=== PATIENT | male | born 1990 | race Caucasian/White ===

== ENCOUNTER 2016-10-20 19:15 | Emergency (ER) | payer MEDICAID, OTHER ==
[~2016-10-20] VITALS: Ht 167.6 cm; Wt 58.0 kg
[2016-10-20 19:18] VITALS: Ht 167.6 cm; Wt 58.0 kg
[2016-10-20] MEDS ORDERED: IBUPROFEN 600 MG TAB PO ONE (20:30)
[2016-10-20] MEDS ORDERED: ACETAMINOPHEN 325 MG TAB PO ONE (20:30)
--- NOTE | 2016-10-20 20:41 | ERD ---
ER Documentation Chief Complaint Date/Time DATE: 10/20/16 TIME: 20:36 Chief Complaint body aches, nasal congestion, fever, headache, vomiting one week HPI 26-year-old male presents here in emergency department for complaints of body aches nasal congestion, fever on-and-off wheezing headache vomiting for 1 week. Patient has been having dry cough, does not cough up any phlegm or blood. Patient has episodes of wheezing at times. Patient complaining of bodyaches, throbbing pain, 6/10 scale, is accompanied with the headache. Patient also has vomiting. Patient denies any diarrhea. Patient is also complaining of dysuria. Patient has dark-colored urine. Patient did not take any medications up with symptoms. ROS All systems reviewed and are negative except as per history of present illness. Medications Home Meds Active Scripts Albuterol Sulfate* (Proair HFA*) 8.5 Gm Hfa.aer.ad, 2 PUFF INH Q4H Y for WHEEZING AND SOB, #1 INHALER Prov:FRANCOISE GARNER NP 10/20/16 Guaifenesin-Codeine Phosphate* (Guaifenesin* AC Cough Syrup) 473 Ml Liquid, 10 ML PO Q4H Y for COUGH, #120 ML Prov:FRANCOISE GARNER NP 10/20/16 Acetaminophen* (Tylophen*) 500 Mg Capsule, 1 CAP PO Q6H Y for PAIN AND OR ELEVATED TEMP, #20 CAP Prov:FRANCOISE GARNER NP 10/20/16 Ibuprofen* (Motrin*) 600 Mg Tab, 600 MG PO Q6H Y for PAIN AND OR ELEVATED TEMP, #30 TAB Prov:FRANCOISE GARNER NP 10/20/16 Cetirizine Hcl* (Zyrtec*) 10 Mg Capsule, 10 MG PO DAILY, #30 TAB.CHEW Prov:FRANCOISE GARNER NP 10/20/16 Oseltamivir Phosphate* (Tamiflu*) 75 Mg Capsule, 75 MG PO BID for 5 Days, CAP Prov:FRANCOISE GARNER NP 10/20/16 Reported Medications [none] Unknown Strength No Conflict Check 10/20/16 Allergies Allergies: Coded Allergies: No Known Allergy (Unverified , 04/14/15) PMhx/Soc Medical and Surgical Hx: pt denies Medical Hx, pt denies Surgical Hx History of Surgery: No Anesthesia Reaction: No Hx Neurological Disorder: No Hx Respiratory Disorders: Yes (ASTHMA.) Hx Cardiac Disorders: No Hx Psychiatric Problems: Yes Hx Miscellaneous Medical Probl: No Hx Alcohol Use: Yes Hx Substance Use: No Hx Tobacco Use: No FmHx Family History: No coronary disease, No diabetes, No other Physical Exam Vitals Vital Signs Date Time Temp Pulse Resp B/P Pulse Ox O2 Delivery O2 Flow Rate FiO2 10/20/16 19:18 101.0 102 20 146/71 100 Physical Exam GENERAL: The patient is well developed and appropriate for usual state of health, in no apparent distress. HEENT: Atraumatic. Ears: Normal tympanic membrane, no erythema or bulging. No ear canal swelling. No ear discharge. Nose: Erythematous nasal turbinates with clear nasal auscultation. Throat: oropharynx erythematous with postnasal drip. No tonsillar swelling or tonsillar exudates. No lymphadenopathy. CHEST: Clear to auscultation bilaterally. There are no rales, wheezes or rhonchi. HEART: Regular rate and rhythm. No murmurs, clicks, rubs or gallops. No S3 or S4. ABDOMEN: Soft, nontender and nondistended. Good bowel sounds. No rebound or guarding. No gross peritonitis. No gross organomegaly or masses. No Grissom sign or McBurney point tenderness. BACK: No midline or flank tenderness. EXTREMITIES: Equal pulses bilaterally. There is no peripheral clubbing, cyanosis or edema. No focal swelling or erythema. Full range of motion. Grossly neurovascularly intact. NEURO: Alert and oriented. Cranial nerves 2-12 intact. Motor strength in all 4 extremities with 5/5 strength. Sensation grossly intact. Normal speech and gait. SKIN: There is no apparent rash or petechia. The skin is warm and dry. HEMATOLOGIC AND LYMPHATIC: There is no evidence of excessive bruising or lymphedema. No gross cervical, axillary, or inguinal lymphadenopathy Result Diagram: 10/20/16210910/20/162109 Results 24 hrs Laboratory Tests Test 10/20/16 21:10 Alanine Aminotransferase (ALT/SGPT) 53IU/L Albumin 4.4g/dl Albumin/Globulin Ratio 1.33 Alkaline Phosphatase 72IU/L Anion Gap 16 Aspartate Amino Transf (AST/SGOT) 61IU/L Basophils # 0.010^3/ul Basophils % 0.5% Blood Urea Nitrogen 7mg/dl Calcium Level 8.7mg/dl Carbon Dioxide Level 28mmol/L Chloride Level 97mmol/L Creatinine 0.87mg/dl Direct Bilirubin 0.00mg/dl Eosinophils # 0.010^3/ul Eosinophils % 0.1% Globulin 3.30g/dl Glucose Level 96mg/dl Hematocrit 38.5% Hemoglobin 13.4g/dl Indirect Bilirubin 0.3mg/dl Lipase 308U/L Lymphocytes # 0.510^3/ul Lymphocytes % 12.0% Mean Corpuscular Hemoglobin 30.8pg Mean Corpuscular Hemoglobin Concent 34.9g/dl Mean Corpuscular Volume 88.2fl Mean Platelet Volume 7.8fl Monocytes # 0.510^3/ul Monocytes % 12.1% Neutrophils # 3.010^3/ul Neutrophils % 75.3% Nucleated Red Blood Cells # 0.010^3/ul Nucleated Red Blood Cells % 0.0/100WBC Platelet Count 63635^3/UL Potassium Level 3.3mmol/L Red Blood Count 4.3710^6/ul Red Cell Distribution Width 14.0% Sodium Level 138mmol/L Total Bilirubin 0.3mg/dl Total Protein 7.7g/dl Urine Bilirubin NEGATIVE Urine Clarity CLEAR Urine Color LT. YELLOW Urine Glucose NEGATIVE% Urine Hemoglobin TRACE Urine Ketones NEGATIVE Urine Leukocyte Esterase NEGATIVE Urine Microscopic RBC 0-2/HPF Urine Microscopic WBC 0-2/HPF Urine Nitrite NEGATIVE Urine Specific [place] <=1.005 Urine Squamous Epithelial Cells RARE Urine Total Protein NEGATIVE Urine Urobilinogen 0.2 E.U./dL Urine pH 6.0 White Blood Count 4.010^3/ul Current Medications Medications (Trade) Dose Ordered Sig/Lacho Route PRN Reason Start Time Stop Time Status Last Admin Dose Admin Ibuprofen (Motrin) 600 mg ONCE ONCE PO 10/20/16 20:30 10/20/16 20:32 DC 10/20/16 21:12 Acetaminophen (Tylenol Tab) 650 mg ONCE ONCE PO 10/20/16 20:30 10/20/16 20:32 DC 10/20/16 21:12 Patient was given medicines for fever control here in the emergency department. After treatment, patient temperature improved and lower. Patient appears well and is hemodynamically stable. Microbiology INFLUENZA A & B BY EIA Final INFLU A&B BY EIA INFLUENZA A POSITIVE (Ref Range Neg) INFLUENZA B NEGATIVE (Ref Range Neg) Phoned to SAULO MCKNIGHT/ALEXEY @ 0772,10/20/16 RMQ PROCEDURE: XR Chest. CLINICAL INDICATION: Abdominal pain. TECHNIQUE: Single frontal view of the chest was obtained COMPARISON: None FINDINGS: The heart and mediastinum are within normal limits. The lungs are clear. There is no pleural effusion or pneumothorax. IMPRESSION: No acute disease. RPTAT: [facility] Physician Elpidio Date Time Electronically viewed and signed by César Spencer Physician on 10/20/2016 21:14 RS/ CC: FRANCOISE GARNER FITNESS TECHNICIAN Procedures/MDM Medical Decision Making: Patient symptoms are most likely consistent with influenza A. There is low suspicion for Pneumonia at this time since patients lungs sounds are clear, patient O2 saturation is normal and patient doesnt show any respiratory distress. Patients chest xray doesnt show infiltrates or any other cardiopulmonary emergencies at this time. There is low suspicion for other cardiopulmonary emergencies at this time such as CHF, Pulmonary Embolism, Pneumothorax, or any other cardiopulmonary emergencies at this time. There is low suspicion for sepsis. Patient appears well and is hemodynamically stable. Fever is controlled with medicines. Disposition: Home. Condition: Stable Prescriptions: Tamiflu, guaifenesin with codeine, Zyrtec, ibuprofen, Tylenol Instructions: Patient is advised to take medications as prescribed. Patient is advised to rest. Patient advised to increase fluid intake, do humidifier at home and if possible, do salt water gargles. Patient is advised that if symptoms are worse, shortness of breath, uncontrolled fever, stridor, vomiting, worst signs and symptoms to return to emergency department immediately. Otherwise, patient is advised to follow up with primary doctor in 5-7 days. Departure Diagnosis: Primary Impression: Influenza Condition: Stable Patient Instructions: Influenza (Adult) Additional Instructions: Patient is advised to take medications as prescribed. Patient is advised to rest. Patient advised to increase fluid intake, do humidifier at home and if possible, do salt water gargles. Patient is advised that if symptoms are worse, shortness of breath, uncontrolled fever, stridor, vomiting, worst signs and symptoms to return to emergency department immediately. Otherwise, patient is advised to follow up with primary doctor in 5-7 days. FRANCOISE GARNER NP Oct 20, 2016 20:41
--- NOTE | 2016-10-20 21:14 | RADRPT ---
PROCEDURE: XR Chest. CLINICAL INDICATION: Abdominal pain. TECHNIQUE: Single frontal view of the chest was obtained COMPARISON: None FINDINGS: The heart and mediastinum are within normal limits. The lungs are clear. There is no pleural effusion or pneumothorax. IMPRESSION: No acute disease. RPTAT: [facility] Physician Elpidio Date Time Electronically viewed and signed by César Spencer Physician on 10/20/2016 21:14 RS/
[2016-10-20 21:26] LABS: BASOPHILS % 0.5 % (0.0-2.0); CONDITION 1; EOSINOPHILS % 0.1 % (0.0-7.0); HEMATOCRIT 38.5 % (42.0-52.0); HEMOGLOBIN 13.4 g/dl (14.0-18.0); LYMPHOCYTES # 0.5 10^3/ul (0.8-2.9); MEAN CORPUSCULAR HEMOGLOBIN 30.8 pg (29.0-33.0); MEAN CORPUSCULAR HGB CONC 34.9 g/dl (32.0-37.0); MEAN CORPUSCULAR VOLUME 88.2 fl (82.0-101.0); MEAN PLATELET VOLUME 7.8 fl (7.4-10.4); MONOCYTE # 0.5 10^3/ul (0.3-0.9); MONOCYTES % 12.1 % (0.0-11.0); NEUTROPHILS % 75.3 % (39.0-77.0); PLATELET COUNT 166 10^3/UL (140-440); RED BLOOD COUNT 4.37 10^6/ul (4.70-6.10)
[2016-10-20 21:30] LABS: ADD UMIC YES; URINE BILIRUBIN (Dip) NEGATIVE (NEGATIVE); URINE BLOOD (Dip) TRACE (NEGATIVE); URINE COLOR LT. YELLOW (YELLOW); URINE GLUCOSE (Dip) NEGATIVE (NEGATIVE); URINE KETONES (Dip) NEGATIVE (NEGATIVE); URINE LEUKOCYTE ESTERASE (Dip) NEGATIVE (NEGATIVE); URINE NITRITE (Dip) NEGATIVE (NEGATIVE); URINE TOTAL PROTEIN (Dip) NEGATIVE (NEGATIVE); URINE UROBILINOGEN (Dip) 0.2 E.U./dL (0.1-1.0)
[2016-10-20 21:31] LABS: ALBUMIN 4.4 g/dl (3.3-4.9); POTASSIUM 3.3 mmol/L (3.5-5.1)
[2016-10-20 21:33] LABS: BILIRUBIN,INDIRECT 0.3 mg/dl (0-1.1); BILIRUBIN,TOTAL 0.3 mg/dl (0.2-1.3); CREATININE 0.87 mg/dl (0.61-1.24)
[2016-10-20 21:34] LABS: ALBUMIN/GLOBULIN RATIO 1.33; CALCIUM 8.7 mg/dl (8.4-10.2); TOTAL PROTEIN 7.7 g/dl (6.1-8.1)
[2016-10-20 21:39] LABS: SQUAMOUS EPITHELIAL CELL,UR RARE; URINE RBCS 0-2 /HPF (0)
[2016-10-20] MEDS ORDERED: ALBU8.5H3 INH (21:42)
[2016-10-20] MEDS ORDERED: IBUP-1542 PO (21:42)
[2016-10-20] MEDS ORDERED: OSLT75C PO (21:42)
[2016-10-20] MEDS ORDERED: ACET500C5 PO (21:42)
[2016-10-20] MEDS ORDERED: GUAI473L22 PO (21:42)
[2016-10-20] MEDS ORDERED: CETI10CA PO (21:42)
[2016-10-20 22:28] VITALS: BP 119/73; PULSE 86; RESP 20; TEMP 100.8
== END 2016-10-20 22:28 | disposition home or self-care (01) ==
LOC: FTE 19:15
DX: J09.X2 Influenza due to identified novel influenza A virus with other respiratory manifestations (principal); J45.901 Unspecified asthma with (acute) exacerbation
CPT/HCPCS: 36415; 71010; 80053; 81001; 83690; 85025; 87400; Z7502; Z7610; 81003

== ENCOUNTER 2016-12-25 05:30 | Emergency (ER) | payer OTHER ==
[~2016-12-25] VITALS: Ht 162.6 cm; Wt 63.6 kg
[~2016-12-25 05:30] MED LIST: ACET500C5 PO; ALBU8.5H3 INH; CETI10CA PO; GUAI473L22 PO; IBUP-1542 PO; OSLT75C PO
[2016-12-25 05:32] VITALS: Ht 162.6 cm; Wt 63.6 kg
--- NOTE | 2016-12-25 06:15 | ERA ---
ER Documentation Chief Complaint Date/Time DATE: 12/25/16 TIME: 06:10 Chief Complaint DANII RA 89,in custody,ETOH intoxication,off psych meds X2 yrs,combative HPI Patient is a 26-year-old male with a history of bipolar disorder off of his medications for the last 2 years. He was drinking heavily tonight when he became agitated and combative with his girlfriend hitting the vang. Initially when the police responded the patient calm down and seemed okay however when they were leaving he apparently ran out in the street in an attempt to kill himself. His mother and his girlfriend both state that they were concerned for his well-being so the police picked him up and brought him in here for evaluation. Patient is difficult to interview as he has tangential thinking and flight of ideas. The review of systems is difficult to obtain however he does specifically deny chest pain, shortness of breath, abdominal pain, vomiting , diarrhea. He denies homicidal ideation, suicidal ideation, visual hallucinations and auditory hallucinations. He says he has no memory for running out into the street. This was witnessed by the police officers however who are currently in the room. The remainder review of systems are negative ROS All systems reviewed and are negative except as per history of present illness. Medications Home Meds Discontinued Reported Medications [none] Unknown Strength No Conflict Check 10/20/16 Discontinued Scripts Albuterol Sulfate* (Proair HFA*) 8.5 Gm Hfa.aer.ad, 2 PUFF INH Q4H Y for WHEEZING AND SOB, #1 INHALER Prov:FRANCOISE GARNER NP 10/20/16 Guaifenesin-Codeine Phosphate* (Guaifenesin* AC Cough Syrup) 473 Ml Liquid, 10 ML PO Q4H Y for COUGH, #120 ML Prov:FRANCOISE GARNER MANAGER RETIREMENT 10/20/16 Acetaminophen* (Tylophen*) 500 Mg Capsule, 1 CAP PO Q6H Y for PAIN AND OR ELEVATED TEMP, #20 CAP Prov:FRANCOISE GARNER MANAGER RETIREMENT 10/20/16 Ibuprofen* (Motrin*) 600 Mg Tab, 600 MG PO Q6H Y for PAIN AND OR ELEVATED TEMP, #30 TAB Prov:FRANCOISE GARNER NP 10/20/16 Cetirizine Hcl* (Zyrtec*) 10 Mg Capsule, 10 MG PO DAILY, #30 TAB.CHEW Prov:FRANCOISE GARNER NIRMALA Blanchard MANAGER RETIREMENT 10/20/16 Oseltamivir Phosphate* (Tamiflu*) 75 Mg Capsule, 75 MG PO BID for 5 Days, CAP Prov:FRANCOISE GARNERPhyllis MANAGER RETIREMENT 10/20/16 Allergies Allergies: Coded Allergies: No Known Allergy (Unverified , 04/14/15) PMhx/Soc Medical and Surgical Hx: pt denies Medical Hx, pt denies Surgical Hx History of Surgery: No Anesthesia Reaction: No Hx Neurological Disorder: Yes (patient is bipolar not taking his meds) Hx Respiratory Disorders: Yes (ASTHMA.) Hx Cardiac Disorders: No Hx Psychiatric Problems: Yes Hx Miscellaneous Medical Probl: No Hx Alcohol Use: Yes Hx Substance Use: No Hx Tobacco Use: No Smoking Status: Never smoker FmHx Family History: No coronary disease Physical Exam Vitals Vital Signs Date Time Temp Pulse Resp B/P Pulse Ox O2 Delivery O2 Flow Rate FiO2 12/25/16 11:28 97.2 91 16 111/70 99 Room Air 12/25/16 06:20 97 18 107/72 98 12/25/16 06:15 97 20 106/75 100 12/25/16 06:00 103 81/47 96 12/25/16 05:45 97.8 110 20 115/78 96 Room Air 12/25/16 05:45 97.8 102 115/78 95 12/25/16 05:32 98.1 82 18 118/62 100 Physical Exam Const: [] Well-developed thin male on the bed in 4 point restraints. He clearly has flight of ideas and tangential thinking. Strong odor of EtOH. Head: Atraumatic normocephalic Eyes: Normal Conjunctiva ENT: Normal External Ears, Nose and Mouth. Tympanic membranes are clear Neck: Full range of motion..~ No meningismus. Resp: Clear to auscultation bilaterally Cardio: Regular rate and rhythm, no murmurs Abd: Soft, non tender, non distended. Normal bowel sounds Skin: No petechiae or rashes Back: No midline or flank tenderness Ext: No cyanosis, or edema Neur: Awake and alert, oriented to self only, he thinks he is in [place] and that it is 1998 Psych: Expansive mood Result Diagram: 12/25/16 0640 12/25/16 0640 Results 24 hrs Laboratory Tests Test 12/25/16 06:40 Acetaminophen Level < 10.0ug/ml Alanine Aminotransferase (ALT/SGPT) 27IU/L Albumin 4.7g/dl Albumin/Globulin Ratio 1.42 Alkaline Phosphatase 74IU/L Anion Gap 22 Aspartate Amino Transf (AST/SGOT) 31IU/L Basophils # 0.010^3/ul Basophils % 0.5% Blood Urea Nitrogen 8mg/dl Calcium Level 8.9mg/dl Carbon Dioxide Level 26mmol/L Chloride Level 107mmol/L Creatinine 0.92mg/dl Direct Bilirubin 0.00mg/dl Eosinophils # 0.110^3/ul Eosinophils % 0.9% Ethyl Alcohol Level 283.0mg/dl Globulin 3.30g/dl Glucose Level 79mg/dl Hematocrit 43.2% Hemoglobin 15.2g/dl Indirect Bilirubin 0.2mg/dl Lymphocytes # 2.210^3/ul Lymphocytes % 39.1% Mean Corpuscular Hemoglobin 30.7pg Mean Corpuscular Hemoglobin Concent 35.2g/dl Mean Corpuscular Volume 87.3fl Mean Platelet Volume 9.4fl Monocytes # 0.210^3/ul Monocytes % 4.0% Neutrophils # 3.110^3/ul Neutrophils % 55.3% Nucleated Red Blood Cells # 0.010^3/ul Nucleated Red Blood Cells % 0.0/100WBC Platelet Count 04012^3/UL Potassium Level 3.6mmol/L Red Blood Count 4.9510^6/ul Red Cell Distribution Width 12.7% Salicylates Level < 1.0mg/dl Sodium Level 151mmol/L Total Bilirubin 0.2mg/dl Total Protein 8.0g/dl Urine Amphetamines Screen Negative Urine Barbiturates Negative Urine Benzodiazepines Screen Negative Urine Bilirubin NEGATIVE Urine Cannabinoids Negative Urine Clarity CLEAR Urine Cocaine Screen Negative Urine Color LT. YELLOW Urine Glucose NEGATIVE% Urine Hemoglobin NEGATIVE Urine Ketones NEGATIVE Urine Leukocyte Esterase NEGATIVE Urine Nitrite NEGATIVE Urine Opiates Screen Negative Urine Specific [place] <=1.005 Urine Total Protein NEGATIVE Urine Urobilinogen 0.2 E.U./dL Urine pH 5.5 White Blood Count 5.610^3/ul Current Medications Medications (Trade) Dose Ordered Sig/Lacho Route PRN Reason Start Time Stop Time Status Last Admin Dose Admin Multivitamins 10 ml/Thiamine HCl 100 mg/Folic Acid 1 mg/Magnesium Sulfate 2 gm/ Sodium Chloride 1,015.2 ml @ 500 mls/ hr Q2H2M ONCE IV 12/25/16 06:30 12/25/16 08:31 DC 12/25/16 08:02 Sodium Chloride (NS) 1,000 ml @ 1,000 mls/hr Q1H ONCE IV 12/25/16 08:30 12/25/16 09:29 DC 12/25/16 09:26 Acetaminophen (Tylenol Tab) 650 mg ONCE ONCE PO 12/25/16 10:00 12/25/16 10:01 DC Procedures/MDM Differential includes but is not limited to bipolar disorder with manic episode , alcohol intoxication, substance abuse, altered mental status EKG: Rate/Rhythm: Normal Sinus Rhythm without any evidence for acute ischemia, no old EKG available for comparison QRS, ST, T-waves: No changes consistent w/ acute ischemia Impression: No evidence of ischemia or arrhythmia Chest x-ray does not reveal any acute cardiopulmonary process per the radiology CT the head does not reveal any acute intracranial process per the radiologist 1435:Patient's lab work was pertinent for hypernatremia consistent with dehydration. He received a banana bag and a liter of normal saline. At this time he is rehydrated. He is still having flight of ideas and tangential thinking. He still appears manic. I feel he would be best served by being transferred to psychiatric facility for treatment of his bipolar disorder. He is medically stable for transfer when a facility is available. Departure Diagnosis: Primary Impression: Bipolar 1 disorder, mixed Additional Impressions: Alcohol intoxication Qualified Code: F10.120 - Alcohol intoxication, uncomplicated Medical non-compliance Dehydration Hypernatremia Condition: IRIS Rg Dec 25, 2016 06:15
[2016-12-25] MEDS ORDERED: MULTIVITAMINS 10 ML, THIAMINE 100 MG, FOLIC ACID 1 MG, MAGNESIUM SULFATE 2 GM in SOD CH... IV ONE (06:30)
[2016-12-25 06:55] LABS: ADD SCAN DIFF NO
--- NOTE | 2016-12-25 07:02 | RADRPT ---
PROCEDURE: CHEST - 1 VIEW CLINICAL INDICATION: 26-year-old male with chest pain. TECHNIQUE: A single frontal AP view of the chest was performed. The images were reviewed on a PAC S workstation. COMPARISON: Chest x-ray October 20, 2016. FINDINGS: The cardiomediastinal silhouette has a normal appearance. There is no evidence for an infiltrate. T he pulmonary vascularity is within normal limits. There is no evidence for pneumothorax or pneumomed iastinum. Thoracolumbar scoliosis is present. IMPRESSION: 1. No evidence for active cardiopulmonary disease. 2. Thoracolumbar scoliosis. .Deondre Vázquez MD, MD Date Time Electronically viewed and signed by .Deondre Vázquez MD, on 12/25/2016 07:01 .Jeanine
[2016-12-25 07:13] LABS: ALBUMIN 4.7 g/dl (3.3-4.9); BASOPHILS % 0.5 % (0.0-2.0); CHLORIDE 107 mmol/L (97-110); EOSINOPHILS # 0.1 10^3/ul (0.0-0.5); EOSINOPHILS % 0.9 % (0.0-7.0); HEMATOCRIT 43.2 % (42.0-52.0); HEMOGLOBIN 15.2 g/dl (14.0-18.0); LYMPHOCYTES # 2.2 10^3/ul (0.8-2.9); LYMPHOCYTES % 39.1 % (15.0-51.0); MEAN CORPUSCULAR HEMOGLOBIN 30.7 pg (29.0-33.0); MEAN CORPUSCULAR HGB CONC 35.2 g/dl (32.0-37.0); MEAN CORPUSCULAR VOLUME 87.3 fl (82.0-101.0); MEAN PLATELET VOLUME 9.4 fl (7.4-10.4); MONOCYTE # 0.2 10^3/ul (0.3-0.9); NEUTROPHIL # 3.1 10^3/ul (1.6-7.5); NEUTROPHILS % 55.3 % (39.0-77.0); PLATELET COUNT 241 10^3/UL (140-415); RED BLOOD COUNT 4.95 10^6/ul (4.70-6.10); RED CELL DISTRIBUTION WIDTH 12.7 % (11.5-14.5); WHITE BLOOD COUNT 5.6 10^3/ul (4.8-10.8)
[2016-12-25 07:14] LABS: POTASSIUM 3.6 mmol/L (3.5-5.1); SODIUM 151 mmol/L (135-144)
[2016-12-25 07:16] LABS: ALANINE AMINOTRANSFERASE 27 IU/L (13-69); ALBUMIN/GLOBULIN RATIO 1.42; ALKALINE PHOSPHATASE 74 IU/L (42-121); ANION GAP 22 (8-16); ASPARTATE AMINO TRANSFERASE 31 IU/L (15-46); BILIRUBIN,INDIRECT 0.2 mg/dl (0-1.1); BILIRUBIN,TOTAL 0.2 mg/dl (0.2-1.3); BLOOD UREA NITROGEN 8 mg/dl (7-20); CARBON DIOXIDE 26 mmol/L (21-31); CREATININE 0.92 mg/dl (0.61-1.24); GLUCOSE 79 mg/dl (70-220)
[2016-12-25 07:17] LABS: CALCIUM 8.9 mg/dl (8.4-10.2)
[2016-12-25 07:30] LABS: ACETAMINOPHEN < 10.0 ug/ml (10.0-30.0); SALICYLATE < 1.0 mg/dl (5.0-30.0)
[2016-12-25 07:31] LABS: ADD UMIC NO; URINE BILIRUBIN (Dip) NEGATIVE (NEGATIVE); URINE BLOOD (Dip) NEGATIVE (NEGATIVE); URINE COLOR LT. YELLOW (YELLOW); URINE GLUCOSE (Dip) NEGATIVE (NEGATIVE); URINE KETONES (Dip) NEGATIVE (NEGATIVE); URINE LEUKOCYTE ESTERASE (Dip) NEGATIVE (NEGATIVE); URINE NITRITE (Dip) NEGATIVE (NEGATIVE); URINE TOTAL PROTEIN (Dip) NEGATIVE (NEGATIVE); URINE UROBILINOGEN (Dip) 0.2 E.U./dL (0.1-1.0)
--- NOTE | 2016-12-25 07:55 | RADRPT ---
PROCEDURE: CT Brain without contrast. CLINICAL INDICATION: Altered mental status. TECHNIQUE: A CT of the brain was performed on a GE HDB Newcopeed 64-slice CT scanner utilizing axial imaging from the skull base through the vertex without IV contrast. Multiplanar reformatted images were made. Images were reviewed on a PACS workstation. One or more the following does reduction nando hniques were utilized: Automated exposure control, adjustment of mA/ or kV according to patient's s ize, or use of iterative reconstruction technique. The CTDIvol is 45.0 mGy and the DLP is 720.2 mGy cm. COMPARISON: None FINDINGS: There is no intracranial hemorrhage, mass effect, or midline shift. No extra-axial fluid collection is seen. The ventricles and sulci are normal in size and configuration. The density of the brain is normal, and the goodman white matter differentiation appears well-preserved. The visualized paranasal sinuses and osseous structures are grossly unremarkable. IMPRESSION: 1. No evidence of acute intracranial pathology. 2. The brain is normal in appearance. RPTAT: HJAH .Yolanda Yo MD, Date Time Electronically viewed and signed by .Yolanda Yo MD, on 12/25/2016 07:54 .H/
[2016-12-25 07:56] LABS: BARBITURATES Negative (NEGATIVE); BENZODIAZEPINES Negative (NEGATIVE); CANNABINOIDS Negative (NEGATIVE); COCAINE Negative (NEGATIVE); OPIATES Negative (NEGATIVE)
[2016-12-25] MEDS ORDERED: SOD CHLORIDE 0.9% 1,000 ML IV ONE (08:30)
[2016-12-25] MEDS ORDERED: ACETAMINOPHEN 325 MG TAB PO ONE (10:00)
[2016-12-25 21:13] VITALS: BP 114/73; PULSE 86; RESP 16; TEMP 98.9
== END 2016-12-25 21:16 ==
LOC: E/R 05:30
DX: F31.60 Bipolar disorder, current episode mixed, unspecified (principal); F10.120 Alcohol abuse with intoxication, uncomplicated; E86.0 Dehydration; E87.0 Hyperosmolality and hypernatremia; J45.909 Unspecified asthma, uncomplicated; R41.82 Altered mental status, unspecified; Z91.19 Patient's noncompliance with other medical treatment and regimen
CPT/HCPCS: 36415; 70450; 71010; 80053; 80306; 80307; 81003; 85025; 93005; 96365; 96366; J3411; J3475; J7030; Z7502; Z7610

== ENCOUNTER 2017-05-15 12:20 | Emergency (ER) | payer OTHER ==
[~2017-05-15] VITALS: Wt 62.0 kg
--- NOTE | 2017-05-15 13:58 | ERD ---
ER Documentation Chief Complaint Date/Time DATE: 05/15/17 TIME: 13:56 Chief Complaint R SIDE NOSE BLEED INTERMITTENT FOR 1 WK. NO TRAUMA. HX NASAL SURG 1 MO AGO HPI 27-year-old male presented for a nosebleed that began last night and had some bleeding this morning as well. In March he had a septal surgery. He had some bleeding 2 weeks ago for which she was given injection by his ENT surgeon. The bleeding has stopped since he arrived in the emergency room. He has no lightheadedness or nausea. ROS All systems reviewed and are negative except as per history of present illness. Medications Home Meds No Active Prescriptions or Reported Meds Allergies Allergies: Coded Allergies: No Known Allergy (Unverified , 04/14/15) PMhx/Soc History of Surgery: No Anesthesia Reaction: No Hx Neurological Disorder: Yes (patient is bipolar not taking his meds) Hx Respiratory Disorders: Yes (ASTHMA.) Hx Cardiac Disorders: No Hx Psychiatric Problems: Yes Hx Miscellaneous Medical Probl: No Hx Alcohol Use: Yes Hx Substance Use: No Hx Tobacco Use: No Physical Exam Vitals Vital Signs Date Time Temp Pulse Resp B/P Pulse Ox O2 Delivery O2 Flow Rate FiO2 05/15/17 12:21 98.6 71 20 124/75 99 Physical Exam Const: [] No distress Head: Atraumatic Eyes: Normal Conjunctiva ENT: Normal External Ears, Nose and Mouth. Scant dried blood in right nare, oropharynx without any apparent streaking of blood. No active bleeding. Results 24 hrs Current Medications Medications (Trade) Dose Ordered Sig/Lacho Route PRN Reason Start Time Stop Time Status Last Admin Dose Admin Oxymetazoline HCl (Afrin [place]) 2 spray ONCE ONCE NASAL 05/15/17 14:00 05/15/17 14:01 Procedures/MDM [place] epistaxis now resolved and patient with septal surgery 1 month ago. He was given a soft nasal clamp in case the bleeding starts again. I am also giving him 2 sprays of Afrin nasal spray in the emergency room. Instructed him not to use the Afrin spray frequently and follow-up with his ENT surgeon in the next few days. Return precautions Departure Diagnosis: Primary Impression: Epistaxis Condition: Stable Patient Instructions: Epistaxis (Adult) Referrals: SANDEEP BULLARD (PCP) Additional Instructions: Call your ENT surgeon for an appointment during the next 2-3 days.See the doctor sooner or return here if your condition worsens before your appointment time. BUD PAINTING DO May 15, 2017 13:58
[2017-05-15] MEDS ORDERED: OXYMETAZOLINE 0.05% 15 ML NAS SPRAY NASAL ONE (14:00)
== END 2017-05-15 15:06 | disposition home or self-care (01) ==
LOC: FTE 12:20
DX: R04.0 Epistaxis (principal); R40.2142 Coma scale, eyes open, spontaneous, at arrival to emergency department; R40.2252 Coma scale, best verbal response, oriented, at arrival to emergency department; R40.2362 Coma scale, best motor response, obeys commands, at arrival to emergency department; J45.909 Unspecified asthma, uncomplicated
CPT/HCPCS: Z7502; Z7610; 99282